=== PATIENT | female | born 1975 | race Caucasian/White ===

== ENCOUNTER 2019-10-06 13:36 | Outpatient (CLI) | payer OTHER ==
--- NOTE | 2019-10-06 16:24 | MRI Report ---
Reason: RIGHT SHOULDER PAIN Procedure Date: 10/06/2019 Accession Number: [id number] / [id number] Procedure: MRI - Shoulder RT W/O CPT Code: Final Report FULL RESULT: PROCEDURE: Shoulder RT W/O INDICATIONS: RIGHT SHOULDER PAIN TECHNIQUE: Noncontrast oblique coronal T2 fast spin echo with fat saturation, oblique sagittal T1 spin echo and T2 fast spin echo with fat saturation, axial T1 spin echo and T2 fast spin echo with fat saturation through the shoulder. COMPARISON: None. FINDINGS: Image quality: Excellent. Rotator cuff: Tendinosis and low-grade articular and bursal surface partial-thickness tear involving distal supraspinatus at its insertion on humeral head is seen extending to musculotendinous junction. Distal infraspinatus tendinosis and very low-grade articular surface partial-thickness tear is also noted. Distal subscapularis tendinosis is seen. No full-thickness rotator cuff tendon rupture. No rotator cuff muscle atrophy on sagittal images. Bones and bursae: No bone marrow contusions or fractures. [id number] acromioclavicular joint osteoarthritic changes are noted. Mild to moderate glenohumeral joint osteoarthritic changes also seen. No pathologic subacromial/subdeltoid bursal fluid is present. Capsule and soft tissues: In the absence of intra-articular contrast, subtle signal abnormality involving superior anterior labrum at 1 to 2:00 position is seen. The glenohumeral ligaments appear intact. The long head of the biceps tendinosis is noted. The rotator interval appears normal, without fibrosis. The coracohumeral ligament is normal in thickness. IMPRESSION: 1. Tendinosis and low-grade articular and bursal surface partial-thickness tear involving distal supraspinatus at its insertion on humeral head extending to musculotendinous junction. Distal infraspinatus tendinosis and very low-grade articular surface partial-thickness tear. Distal subscapularis tendinosis. 2. Mild to moderate acromioclavicular joint and glenohumeral joint osteoarthritis. 3. Finding is suggestive of subtle superior anterior labral tear at 1 to 2:00 position. 4. Tendinosis involving proximal intra-articular portion of long head of biceps. Reviewed by: Lisandro Myrick MD on 10/06/2019 4:23 PM PDT Approved by: Lisandro Myrick MD on 10/06/2019 4:23 PM PDT Station ID: [id number]
== END 2019-10-06 13:37 | disposition home or self-care (01) ==
LOC: DI 13:36
PROVIDERS: ATTEND Nurse Practitioner Family
DX: M75.111 Incomplete rotator cuff tear or rupture of right shoulder, not specified as traumatic (principal); M19.011 Primary osteoarthritis, right shoulder; M67.911 Unspecified disorder of synovium and tendon, right shoulder